=== PATIENT | male | born 1970 | race Caucasian/White ===

== ENCOUNTER 2016-04-04 14:13 | Emergency (ER) | payer BC ==
[~2016-04-04] VITALS: Ht 180.3 cm; Wt 97.5 kg
[2016-04-04 14:22] VITALS: BP 137/99
[2016-04-04] MEDS ORDERED: CYCLOBENZAPRINE5 M2 PO (15:26)
[2016-04-04] MEDS ORDERED: NAPROSYN500 M1 PO (15:26)
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
== END 2016-04-04 15:59 ==
LOC: ERH 14:13
DX: M54.2 Cervicalgia (principal); V89.2XXA Person injured in unspecified motor-vehicle accident, traffic, initial encounter